=== PATIENT | male | born 1965 | race Caucasian/White ===

== ENCOUNTER 2019-11-24 22:39 | Emergency (ER) | payer SELFPAY ==
[~2019-11-24] VITALS: Ht 175.3 cm; Wt 56.7 kg
[~2019-11-24 22:39] MED LIST: NORCO 5-325 TA1 EACH PO
[2019-11-25] MEDS ORDERED: TESSALON PERLE100 MG PO (00:19)
== END 2019-11-25 00:28 | disposition home or self-care (01) ==
LOC: ED 22:39
DX: B34.9 Viral infection, unspecified (principal); F17.200 Nicotine dependence, unspecified, uncomplicated; Z91.030 Bee allergy status
CPT/HCPCS: 71046; 87502; 99283-25

== ENCOUNTER 2021-03-09 14:13 | Emergency (ER) | payer SELFPAY ==
[~2021-03-09] VITALS: Ht 175.3 cm; Wt 59.0 kg
[~2021-03-09 14:13] MED LIST changes: +TESSALON PERLE100 MG PO
[2021-03-09] MEDS ORDERED: PROVENTIL HFA6.7 GM INH (17:48)
[2021-03-09] MEDS ORDERED: PREDNISONE20 MG PO (17:48)
== END 2021-03-09 17:58 | disposition home or self-care (01) ==
LOC: ED 14:13
DX: J44.1 Chronic obstructive pulmonary disease with (acute) exacerbation (principal); F17.200 Nicotine dependence, unspecified, uncomplicated; Z91.030 Bee allergy status
CPT/HCPCS: 71045; 80053; 85025; 94640; 94664; 99285-25; J7512; U0003

== ENCOUNTER 2022-01-27 16:12 | Inpatient (IN) | payer OTHER ==
[~2022-01-27] VITALS: Ht 175.3 cm; Wt 60.2 kg
[~2022-01-27 16:12] MED LIST changes: +PREDNISONE20 MG PO; +PROVENTIL HFA6.7 GM INH
--- NOTE | 2022-01-27 20:09 | NUR ---
PT BROUGHT TO MED SURG VIA STRETCHER BY THIS RN, KENIA AND NS STILL INFUSING. PT WAS ABLE TO STEP OFF STRECHER AND GET ON BED WITH STANDBY ASSIST ONLY.
--- NOTE | 2022-01-27 20:10 | NUR ---
PT IS HERE FROM THE ER, PT SBA PIVOT TO FROM THE STRECTER, VITALS DONE, ICE WATER GIVEN, PUDDING PROVIDED, NO FURTHER NEEDS AT THIS TIME, RN IN FOR ADMITTION PROCESS
--- NOTE | 2022-01-27 20:50 | NUR ---
PT OFFERED A NICOTINE PATCH. HE DECLINES OFFER. PT REPORTS HE HAS NOT HAD ANY SOLID FOOD SINCE YESTERDAY, PT GIVEN A PUDDING AND LUNCH BOX ORDERED FOR PT. ALSO PROVIDED WITH WATER AT BEDSIDE IN PT CUP. WARM BLANKET APPLIED. INTITIAL ADMIT DONE, YUDELKA PRIMARY RN TO BE IN TO DO ASSESSMENT.
--- NOTE | 2022-01-27 20:53 | NUR ---
PT IN BED, ROOM AIR, DISHEVELED LOOK, DRY REDDISH SKIN. R LE RED TENDER WARM TO TOUCH AREAS MARKED LAST 3 DISTAL TOES RED, TENDER, VERY POOR FOOT HYGIENE, CALLUSES ON BALLS OF FEET, TENDER AREA, LOOSE PEELING SKIN BOTTOM OF FEET. IV SL LFA. PT COOPERATIVE
--- NOTE | 2022-01-28 02:31 | NUR ---
AWAKE, ON ROOM AIR, COOP WITH ASSESSMENT, NO C/O R LEG PAIN, R LEG EDEMA, WARMTH, REDNESS NO CHANGES, ELEVTED IN PILLOWS, UNABLE TO DO A GOOD PULSES CHECK HE IS VERY TENDER, DISTAL 3 TOES TENDER. PLEASANT AND COOP, NO OTHER CHANGES
--- NOTE | 2022-01-28 05:50 | NUR ---
IN TO GET VITALS, I&Os COMPLETE, NO FURTHER NEEDS AT THIS TIME
--- NOTE | 2022-01-28 06:04 | NUR ---
pt has slept this am, on room air, clear lungs, no bm, has used the urinal, voiding QS, R leg elevated in pillows, red, warm tender to tocuh, R distal toes tender, red, peeling areas on soles of feet, poor foot hygien. ivf infusing w/o problems, ate snack provided. no c/o pain. cooperative, alert and oriented. 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
--- NOTE | 2022-01-28 07:40 | NUR ---
Patient in bed sleeping, eyes closed, respirations even and non labored. IV site is patent. RLE elevated on pillows. Reddened area to RLE previously marked; redness remains within marked borders. Left/Right pedal pulse is strong. Bed alarm intact. Personal supplies and call light within reach.
--- NOTE | 2022-01-28 08:12 | NUR ---
MRSA swab obtained and sent to lab.
--- NOTE | 2022-01-28 10:45 | NUR ---
Spoke with Mat. He states he has been homeless for 3 years. He live in a tent in his friend, Cristobal Champion's yard. [phone]. He received his mail at this address. He was signed up for [facility] yesterday, he has food stamps and uses the food bank. He is not disabled and underage for [employer] services. He would like low income housing and has submitted an application. We discussed free medical transport through [facility] and I gave him their number. He states he does not have problems walking, his friend drives him to the store to grocery shop. He denies further needs. Would like a pcp, has been [facility] and I check for appts for FU visit and to establish care.
--- NOTE | 2022-01-28 11:41 | NUR ---
[facility] to [facility] with Kailey Taylor. Pt was seen there 2 years ago. They will schedule appt to establish care after fu visit. FU appt scheduled for 02/04/22 at 3 pm with Kailey Taylor.
--- NOTE | 2022-01-28 12:14 | NUR ---
PT ALERT, ORIENTED AND PLEASANT. FEELS INFORMED-JUST CONCERNED ABOUT WORK. HAD GOOD VISIT, PT REQUESTED PRAYER. LEFT G.POST, WILL FOLLOW
--- NOTE | 2022-01-28 12:29 | NUR ---
MED REC COMPLETE
--- NOTE | 2022-01-28 15:45 | NUR ---
RLE elevated on pillows, leg unchanged, continues to be red within marked borders and warm to touch. Patient tolerating meals well. No current needs. Personal supplies and call light within reach.
--- NOTE | 2022-01-28 19:49 | NUR ---
On room air, lungs clear but dim at baes, alert and oriented, coop with assessments SL patent. Rleg edema, redness, tenderness and painful. Up to BSC with 1PA. voided and had bm. tolerating liquids well. call light at hands reach
--- NOTE | 2022-01-28 19:50 | NUR ---
pt called, assist to the bsc, pivot sba, back to bed, vitals done, no further needs at this time
--- NOTE | 2022-01-29 02:02 | NUR ---
resting, no distress, R leg elevated in pillows. pivot transfer to BS. SL no c/o pain, tolerating liquids
--- NOTE | 2022-01-29 04:44 | NUR ---
Pt has slept this shift, on room air, clear lungs dim at baees, no cough noted today. Pivot transfer to BS, had bm earlier on shift. R leg edema, tenderness and redness improving. elevated with pillows. tender 3 distal toes, slight edema and red. L foot and calve red no tenderness. Has tolerated liquids well no emesis, no c/o pain. voiding QS yellow urine
--- NOTE | 2022-01-29 06:37 | NUR ---
PT HAS SLEPT ALL THIS SHIFT. ON ROOM AIR, IPA TO BSC, HAD BM AT BEGINING OF SHIFT. USES URINAL, VOIDING QS. SL PATENT. NO C/O PAIN. R LEG ELEVATED IN PILLOWS, IMPROVING REDNESS, EDEMA AND PAIN
--- NOTE | 2022-01-29 13:46 | NUR ---
Patient up in chair resting, eyes closed, respirations even and non labored. RLE elevated on pillows, cms intact, redness and swelling has lessened. Fresh water provided.
--- NOTE | 2022-01-29 18:02 | NUR ---
Patient in chair at this time, no distress. Fresh water provided. RLE elevated on pillows. Pt has a friend in room visiting with him. Patient has no needs at this time. Personal supplies and call light within reach.
--- NOTE | 2022-01-29 19:05 | NUR ---
REPORT RECEIVED FROM ANNA VIERA
--- NOTE | 2022-01-29 20:58 | NUR ---
PT ABX STARTED. PT IS SITTING IN RECLINER PREFERS TO BE SAT IN CHAIR INSTEAD OF BED RIGHT NOW. PT DENIES NEEDS FOR PAIN MEDS. WARM BLANKET GIVEN. CALL LIGHT IN REACH.
--- NOTE | 2022-01-29 21:00 | NUR ---
PT CALLED NEEDED BSC. UP IN RECLINER, SBA TRANSFER TO BSC. SMEAR BM ON DRAW SHEET.
--- NOTE | 2022-01-29 22:30 | NUR ---
PT OTHER ABX GIVEN. CONTINUES TO DENY ANY NEEDS. WISHES TO STAY IN RECLINER. WILL CALL WHEN NEEDING TO GO TO BE. URINAL EMPTIED.
--- NOTE | 2022-01-30 | NUR ---
PT CONTINUES TO SIT IN RECLINER WILL CALL ONCE HE WISHES TO GO BACK TO BED.
--- NOTE | 2022-01-30 01:05 | NUR ---
PT IS READY TO GET BACK INTO BED. PT ABLE TO GET SELF BACK INTO BED FROM THE CHAIR, JUST STANDBY ASSIST. CALL LIGHT IN REACH.
--- NOTE | 2022-01-30 04:48 | NUR ---
IN ROOM TO GET VITALS AND ASSESSMENT, PT WAKENS EASILY AND IS COOPERATIVE. EMPTIED URINAL WELL. DENIES OTHER NEEDS.
--- NOTE | 2022-01-30 05:57 | NUR ---
pt was reporting pain with flushing of iv prior to starting ancef. started new iv to right wrist 20 g. removed iv from left forearm tip intact wrapped in coban.
--- NOTE | 2022-01-30 06:37 | NUR ---
PT WAS SITTING IN CHAIR MOST OF THE EVENING INTO THE NIGHT PER REQUEST, THEN WENT TO BAD AND HAS BEEN ASLEEP. PT'S IV TO HIS LEFT ARM WAS PAINFUL TO FLUSH DSO THIS WAS REMOVED AND NEW ONE STARTED TO RIGHT HAND, 20G. PT HAS BEEN USING URINAL TO VOID, HAS NOT REQUESTED ANYTHING DURING NIGHT.
--- NOTE | 2022-01-30 08:50 | NUR ---
pt in chair, on room air, coop with assessment. lungs clear dim at bases, cleared with cough. abd soft, no c/o CP or sob. stated he is better. R leg edema and redness much improved, scabbed over renetta over toes and under healing. less painful, cap refill brisk, mycotic toenails present. no c/o pain. call ligth and fluids t bedside, Legs elevated
--- NOTE | 2022-01-30 10:37 | NUR ---
PATIENT RESTING THE CHAIR. BREAKFAST FINISHED. CALL LIGHT WITH IN REACH. NO FURTHER NEEDS AT THIS TIME.
--- NOTE | 2022-01-30 10:51 | NUR ---
IN CHAIR, NO C/O PAIN, AWAKEN EASILY, NO C/O PAIN, LE ELEVATED, CALL LIGHT AND FLUIDS AT BEDSIDE
--- NOTE | 2022-01-30 11:52 | NUR ---
pt in chair, legs elevated, on room air, eyes closed, no distress call light an fluids at bedside,
--- NOTE | 2022-01-30 13:40 | NUR ---
pt up in chair, on room air, legs elevated, much improved redness, and edema to R LE. no c/o pain. ate 100% lunch, voiding QS. tolerataing diet well, no emesis, liquids and call light at bedside
--- NOTE | 2022-01-30 14:42 | NUR ---
patient is in the shower. He is able to do it on his own. patient will pull the call light when he is done.
--- NOTE | 2022-01-30 15:41 | NUR ---
Pt has been up in chair and legs elevated most of this shift. On room air, clear lungs, voiding QS yellow urine. R LE much improved with decreased edema, redness and tendernes. no c/o pain. Has been tolerating IV abx, no emesis, tolerating liquids well. Cooperative, alert oriented and pleasant, follows instructions, uses call light.
--- NOTE | 2022-01-30 20:54 | NUR ---
Patient in chair at this time, no distress. Fresh water provided. RLE elevated on pillows. Patient has no needs at this time. Personal supplies and call light within reach.
--- NOTE | 2022-01-30 23:12 | NUR ---
Patient resting in chair, no distress. Patient is on room air, respirations even and non labored. RLE elevated on pillows. No needs at this time.
--- NOTE | 2022-01-31 04:12 | NUR ---
Patient sleeping soundly in chair, no distress. Patient has no distress. No needs, personal supplies and call light within reach.
--- NOTE | 2022-01-31 08:16 | NUR ---
Report received from Jeanne VIERA. Pt is resting in recliner. No concerns voiced at this time. Pt will have Vanco trough drawn at 8:30 am. Pt might be discharging today.
--- NOTE | 2022-01-31 08:30 | NUR ---
PATIENT UP IN CHAIR WAITING FOR BREAKFAST. CALL LIGHT IN REACH. NO FURTHER NEEDS AT THIS TIME.
--- NOTE | 2022-01-31 10:00 | NUR ---
[facility] came back as 19.1. Pharmacy was notified. Awaiting the bag to be sent form pharmacy. Pt is resting in recliner. Uses urinal on his own. No concerns at the moment
--- NOTE | 2022-01-31 10:10 | NUR ---
Spoke with Juan F. He denies needs to go home. Asked if he will need transport and he request a taxi. He denies need to stop at the pharmacy on the way home as friends will pepper picker his RX when needed. He will dc to his tent at his friends home. Denies further needs.
--- NOTE | 2022-01-31 10:38 | NUR ---
PATIENT IN CHAIR RESTING WITH EYES CLOSED. VITALS AND I&O'S CHARTED. CALL LIGHT IN REACH. NO FURTHER NEEDS AT THIS TIME.
[2022-01-31] MEDS ORDERED: COMBIVENT RESPIM4 GM INH (12:06)
[2022-01-31] MEDS ORDERED: CLINDAMYCIN HC300 MG PO (12:07)
--- NOTE | 2022-01-31 12:30 | NUR ---
Pt is sitting in a recliner eating lunch. Pt denies pain/discomfort. Pt will be discharging via taxi. Pt requested that his wound on the bottom of his R toe is dressed before he leaves.
--- NOTE | 2022-01-31 14:00 | NUR ---
Pt is getting ready for discharge. Ancef administered. IV removed. Discharge instructions provided. The importance of finishing up whole course of antibiotic was explained.
== END 2022-01-31 14:30 | disposition home or self-care (01) | DRG 603 ==
LOC: ED 16:12 → MS 19:11
PROVIDERS: ADMIT Internal Medicine; ATTEND Internal Medicine
DX: L03.115 Cellulitis of right lower limb (principal); L03.116 Cellulitis of left lower limb; F17.200 Nicotine dependence, unspecified, uncomplicated; J44.9 Chronic obstructive pulmonary disease, unspecified; E87.6 Hypokalemia; Z20.822 Contact with and (suspected) exposure to COVID-19; F15.10 Other stimulant abuse, uncomplicated; Z59.00 Homelessness unspecified; Z91.038 Other insect allergy status; Z91.09 Other allergy status, other than to drugs and biological substances; Z98.890 Other specified postprocedural states; Z79.899 Other long term (current) drug therapy
CPT/HCPCS: 36415; 73590; 80048; 80053; 80202; 83605; 83735; 84132; 85007; 85025; 85060; 87502; 94760; 99406; A9270; C9803; J0690; J1650; J3370; J3480; J7030; J7060; J7120; U0003

== ENCOUNTER 2022-07-05 09:26 | Emergency (ER) | payer OTHER ==
[~2022-07-05] VITALS: Ht 175.3 cm; Wt 59.9 kg
[~2022-07-05 09:26] MED LIST changes: +CLINDAMYCIN HC300 MG PO; +COMBIVENT RESPIM4 GM INH
[2022-07-05] MEDS ORDERED: K-TAB ER20 MEQ PO (10:58)
--- NOTE | 2022-07-05 16:50 | EKG ---
[facility] [address] [place] [address] Signed Sinus bradycardia Minimal voltage criteria for LVH, may be normal variant ( [place] ) Cannot rule out Anterior infarct , age undetermined Abnormal ECG No previous ECGs available Confirmed by ONESIMO CHANG MD ([id number]) on 07/05/2022 4:49:53 PM Electronically Signed By: ONESIMO CHANG MD 07/05/22 1650 PATIENT NAME: HANNONLUCY Electrocardiogram DATE OF : 63 PHYSICIAN: ONESIMO CHANG MD REPORT #: [id number] REPORT IS CONFIDENTIAL AND NOT TO BE RELEASED WITHOUT AUTHORIZATION
== END 2022-07-05 11:10 | disposition home or self-care (01) ==
LOC: ED 09:26
DX: R55 Syncope and collapse (principal); E87.6 Hypokalemia; J44.9 Chronic obstructive pulmonary disease, unspecified; F17.200 Nicotine dependence, unspecified, uncomplicated; Z91.030 Bee allergy status
CPT/HCPCS: 36415; 80053; 81001; 83735; 84484; 85025; 93005; 93010; 99406; A9270; J7030

== ENCOUNTER 2022-10-17 19:20 | Emergency (ER) | payer OTHER ==
[~2022-10-17] VITALS: Ht 175.3 cm; Wt 67.8 kg
[~2022-10-17 19:20] MED LIST changes: +K-TAB ER20 MEQ PO
--- NOTE | 2022-10-18 13:08 | EKG ---
[facility] [address] [place] [address] Signed Normal sinus rhythm Possible Left atrial enlargement Incomplete right bundle branch block Minimal voltage criteria for LVH, may be normal variant ( [place] product ) Anterior infarct (cited on or before 05-JUL-2022) Abnormal ECG When compared with ECG of 05-JUL-2022 09:28, Vent. rate has increased BY 28 BPM Confirmed by ONESIMO CHANG MD ([id number]) on 10/18/2022 1:08:22 PM Electronically Signed By: ONESIMO CHANG MD 10/18/22 1308 PATIENT NAME: LUCY HANNON Electrocardiogram DATE OF : 63 PHYSICIAN: ONESIMO CHANG MD REPORT #: [id number] REPORT IS CONFIDENTIAL AND NOT TO BE RELEASED WITHOUT AUTHORIZATION
== END 2022-10-17 22:45 | disposition home or self-care (01) ==
LOC: ED 19:20
DX: R07.89 Other chest pain (principal); R55 Syncope and collapse; J44.9 Chronic obstructive pulmonary disease, unspecified; F17.200 Nicotine dependence, unspecified, uncomplicated; Z91.030 Bee allergy status
CPT/HCPCS: 36415; 71046; 80053; 83735; 84484; 85025; 93005; 93010; 99285-25; A9270

== ENCOUNTER 2024-08-25 18:22 | Emergency (ER) | payer OTHER ==
[~2024-08-25] VITALS: Ht 175.3 cm; Wt 61.3 kg
[2024-08-25 18:40] LABS: HEMOGLOBIN 16.4 g/dL (12.0-18.0)
[2024-08-25 18:49] LABS: EOSINOPHILS 1.4 % (0-6); HEMATOCRIT 49.2 % (35.0-50.0); LYMPHOCYTES 20.7 % (24-44); MCH 32.1 (27-36); MCHC 33.3 g/dl (30-36); MCV 96.3 fl (81-99); NEUTROPHILS 67.9 % (39-80); PLATELET COUNT 461 K/uL (140-440); RBC 5.11 M/ul (4.3-5.7); RDW 14.2 (10.5-15.0)
[2024-08-25 19:00] LABS: ALBUMIN 3.6 g/dL (3.4-5.0); ALBUMIN/GLOBULIN RATIO 0.84 (1.1-2.4); ANION GAP 11.7 (7-21); BILIRUBIN, TOTAL 0.3 ng/dL (0.2-1.0); BUN/CREATININE RATIO 14.19 (6.0-28.6); CREATININE, SERUM 1.55 mg/dL (0.70-1.30); POTASSIUM 3.7 mmol/L (3.5-5.1); PROTEIN, TOTAL 7.9 g/dL (6.4-8.2)
[2024-08-25 20:30] VITALS: BP 187/104
--- NOTE | 2024-08-26 21:57 | EKG ---
[facility] [address] [place] [address] Signed Normal sinus rhythm with sinus arrhythmia Moderate voltage criteria for LVH, may be normal variant ( [place]olow[place] , [place] product ) Cannot rule out Anterior infarct (cited on or before 05-JUL-2022) Abnormal ECG When compared with ECG of 17-OCT-2022 19:46, No significant change was found Confirmed by Darrel Pride MD () on 08/26/2024 9:57:36 PM Electronically Signed By: DARREL PRIDE MD 08/26/24 2157 PATIENT NAME: LUCY HANNON Electrocardiogram DATE OF : 63 PHYSICIAN: DARREL PRIDE MD REPORT #: [id number] REPORT IS CONFIDENTIAL AND NOT TO BE RELEASED WITHOUT AUTHORIZATION
== END 2024-08-25 20:33 | disposition home or self-care (01) ==
LOC: ED 18:22
PROVIDERS: Emergency Medicine
DX: R07.89 Other chest pain (principal); J44.9 Chronic obstructive pulmonary disease, unspecified; E11.9 Type 2 diabetes mellitus without complications; I10 Essential (primary) hypertension; F17.200 Nicotine dependence, unspecified, uncomplicated; Z91.030 Bee allergy status
CPT/HCPCS: 36415; 71045; 80053; 83735; 84484; 85025; 93005; 93010; 99285-25